=== PATIENT | female | born 2005 | race Caucasian/White ===

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

== ENCOUNTER 2024-04-26 12:36 | Emergency (ER) | payer BC ==
[2024-04-26] MEDS ORDERED: Dexamethasone 10 MG/ML VIAL ONE (12:47)
[2024-04-26] MEDS ORDERED: Benzocaine 20% Spray 60 ML CAN ONE (12:48)
== END 2024-04-26 13:13 | disposition home or self-care (01) ==
LOC: ERS 12:36
DX: J36 Peritonsillar abscess (principal)
CPT/HCPCS: 42700; J1100